=== PATIENT | male | born 1990 | race African-American/Black ===

== ENCOUNTER 2022-07-05 22:58 | Observation (INO) ==
[2022-07-05] MEDS ORDERED: MIDAZOLAM HCL 5 MG/ML VIAL ONE (23:07)
[2022-07-05] MEDS ORDERED: SODIUM CHLORIDE 0.9% 500 ML IV SCH (23:15)
[2022-07-05 23:37] LABS: Basophils # (auto) 0.03 K/uL (0-0.2); Basophils % (auto) 0.8 %; Eosinophils # (auto) 0.05 K/uL (0-0.50); Eosinophils % (auto) 1.3 %; Hematocrit (blood only) 38.4 % (40.1-51.0); Lymphocytes # (auto) 1.77 K/uL (1.2-3.4); Lymphocytes % (auto) 46.3 %; Mean Corpuscular Hemoglobin 30.4 pg (25.0-34.0); Mean Corpuscular Hgb Conc 33.9 g/dL (32.0-36.0); Mean Corpuscular Volume 89.9 fL (80.0-100.0); Mean Platelet Volume 9.6 fL (9.4-12.4); Monocytes # (auto) 0.39 K/uL (0.24-0.82); Monocytes % (auto) 10.2 %; Neutrophils # (auto) 1.58 K/uL (1.4-6.5); Neutrophils % (auto) 41.4 %; Platelet Count 238 K/uL (130-400); RDW Coefficient of Variation 12.5 % (11.5-14.5); RDW Standard Deviation 41.2 fL (36.4-46.3); Red Blood Count 4.27 M/uL (4.63-6.08); White Blood Count 3.82 K/ul (4.8-10.8)
[2022-07-06 00:02] LABS: Albumin Globulin Ratio 1.5 (0.9-2); Albumin Level 3.9 gm/dl (3.4-5.0); BUN Creatinine Ratio 18.9 (10-20); Bilirubin,Total 0.4 mg/dl (0.2-1.0); Calcium 8.4 mg/dl (8.5-10.1); Creatinine Clr Calc Pharmacy 135.7 ml/min; Est GFR (African American) 129.6 ml/min; Est GFR (Non-African American) 111.8 ml/min; Globulin 2.6 gm/dl (2.5-4.0); Total Protein 6.5 gm/dl (6.0-8.3)
[2022-07-06 01:28] LABS: Appearance Urine Clear (Clear); Bilirubin Urine Negative (Negative); Blood Urine Negative (Negative); Color Urine Yellow; Glucose Urine UA Negative (Negative); Ketones Urine Negative (Negative); Leukocyte Esterase Urine Negative (Negative); Nitrite Urine Negative (Negative); Protein Urine Negative (Negative); Specific Gravity Urine 1.009 (1.000-1.030); Urobilinogen Urine Negative (Negative)
[2022-07-06 02:32] LABS: Amphetamines+Metham, Urine Neg (Neg); Barbiturates, Urine Neg (Neg); Benzodiazepine, Urine Pos (Neg); Cocaine, Urine Neg (Neg); MDMA (Ecstacy), Urine Neg (Neg); Methadone, Urine Neg (Neg); Opiate, Urine Neg (Neg); Phencyclidine, Urine Neg (Neg)
[2022-07-06] MEDS ORDERED: LORazepam 2 MG/2 ML SYR IV STA (03:51)
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
[2022-07-06] MEDS ORDERED: ONDANSETRON INJ 2 MG/ML 2 ML VIAL IV PRN (06:09)
[2022-07-06] MEDS ORDERED: ACETAMINOPHEN 325 MG TAB PO PRN (06:09)
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
[2022-07-06 07:23] LABS: Basophils # (auto) 0.02 K/uL (0-0.2); Basophils % (auto) 0.4 %; Eosinophils # (auto) 0.09 K/uL (0-0.50); Eosinophils % (auto) 1.9 %; Hematocrit (blood only) 39.5 % (40.1-51.0); Hemoglobin 13.7 g/dl (14.0-18.0); Immature Granulocytes # (auto) 0.01 K/uL (0.00-0.02); Immature Granulocytes % (auto) 0.2 %; Lymphocytes # (auto) 2.11 K/uL (1.2-3.4); Lymphocytes % (auto) 44.2 %; Mean Corpuscular Hemoglobin 31.1 pg (25.0-34.0); Mean Corpuscular Hgb Conc 34.7 g/dL (32.0-36.0); Mean Corpuscular Volume 89.6 fL (80.0-100.0); Mean Platelet Volume 9.5 fL (9.4-12.4); Monocytes # (auto) 0.39 K/uL (0.24-0.82); Monocytes % (auto) 8.2 %; Neutrophils # (auto) 2.15 K/uL (1.4-6.5); Neutrophils % (auto) 45.1 %; Platelet Count 236 K/uL (130-400); RDW Coefficient of Variation 12.4 % (11.5-14.5); RDW Standard Deviation 40.7 fL (36.4-46.3); Red Blood Count 4.41 M/uL (4.63-6.08); White Blood Count 4.77 K/ul (4.8-10.8)
[2022-07-06 08:05] LABS: BUN Creatinine Ratio 16.2 (10-20); Calcium 8.7 mg/dl (8.5-10.1); Creatinine Clr Calc Pharmacy 165.1 ml/min; Est GFR (African American) 140.5 ml/min; Est GFR (Non-African American) 121.2 ml/min; Potassium 3.6 mmol/L (3.5-5.1)
[2022-07-06] MEDS ORDERED: LORazepam 1 MG in SYRINGE 0 ML IV STA (08:41)
[2022-07-06] MEDS ORDERED: LORazepam 1 MG in SYRINGE 0 ML IV PRN ×2 (08:44→09:32)
[2022-07-06] MEDS ORDERED: LORazepam 4 MG in SYRINGE 0 ML IV PRN (09:34)
[2022-07-06] MEDS ORDERED: PHENYTOIN 200 MG in SYRINGE 0 ML IV STA (09:54)
[2022-07-06] MEDS ORDERED: SODIUM CHLORIDE 0.9% 10ML FLUSH IV STA (09:54)
[2022-07-06 10:02] LABS: Basophils # (auto) 0.02 K/uL (0-0.2); Basophils % (auto) 0.4 %; Eosinophils % (auto) 2.2 %; Hematocrit (blood only) 41.8 % (40.1-51.0); Hemoglobin 14.1 g/dl (14.0-18.0); Mean Corpuscular Hemoglobin 30.6 pg (25.0-34.0); Mean Corpuscular Hgb Conc 33.7 g/dL (32.0-36.0); Mean Corpuscular Volume 90.7 fL (80.0-100.0); Monocytes # (auto) 0.41 K/uL (0.24-0.82); Monocytes % (auto) 9.2 %; Neutrophils # (auto) 2.24 K/uL (1.4-6.5); Neutrophils % (auto) 50.2 %; Platelet Count 243 K/uL (130-400); RDW Coefficient of Variation 12.8 % (11.5-14.5); RDW Standard Deviation 41.8 fL (36.4-46.3); Red Blood Count 4.61 M/uL (4.63-6.08); White Blood Count 4.47 K/ul (4.8-10.8)
[2022-07-06] MEDS ORDERED: SODIUM CHLORIDE IV STA (10:08)
[2022-07-06] MEDS ORDERED: FOSPHENYTOIN IV STA (10:08)
[2022-07-06 10:26] LABS: BUN Creatinine Ratio 12.5 (10-20); Creatinine Clr Calc Pharmacy 138.8 ml/min; Est GFR (African American) 130.8 ml/min; Est GFR (Non-African American) 112.9 ml/min; Potassium 3.7 mmol/L (3.5-5.1)
[2022-07-06] MEDS ORDERED: MGPE IV ONE (10:30)
[2022-07-06] MEDS ORDERED: SODIUM CHLORIDE 0.9% IV ONE (10:30)
[2022-07-06] MEDS ORDERED: FOSPHENYTOIN IV ONE (10:30)
[2022-07-06] MEDS: LORazepam 1 MG in SYRINGE 0 ML IV PRN ×4 (10:38→14:00)
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
[2022-07-06] MEDS ORDERED: levETIRAcetam 500 MG TAB PO ONE (12:00)
--- NOTE | 2022-07-06 14:43 | Electrocardiogram Report ---
Test Reason : Blood Pressure : / mmHG Vent. Rate : 066 BPM Atrial Rate : 066 BPM P-R Int : 240 ms QRS Dur : 078 ms QT Int : 408 ms P-R-T Axes : 065 061 032 degrees QTc Int : 427 ms Sinus rhythm with 1st degree A-V block Otherwise normal ECG When compared with ECG of 23-APR-2016 15:01, FL interval has increased Confirmed by Kb Ames ([id number]) on 07/06/2022 2:43:17 PM Referred By: Misha KEY Confirmed By:Kb Ames
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
--- NOTE | 2022-07-06 17:30 | Electroencephalogram ---
EEG Procedure Note Date of Service July 06, 2022 Start / End Times Start Time: 16:20 End Time: 16:30 Referring Physician Sergio Colón MD History Seizures Home Medication List Medication Instructions Recorded Confirmed Type mirtazapine 15 mg tablet 15 mg PO HS 07/06/22 07/06/22 History paroxetine HCl 10 mg tablet 10 mg PO DAILY 07/06/22 07/06/22 History Inpatient Medication List Lorazepam 1 mg/ Syringe 1 mls @ 2 mls/min IV Q5M PRN PRN Reason: Seizure Stop: 08/05/22 09:33 Last Admin: 07/06/22 14:00 Dose: 2 mls/min Documented By: Admin: 07/06/22 13:42 Dose: 2 mls/min Documented By: Admin: 07/06/22 11:22 Dose: 2 mls/min Documented By: Admin: 07/06/22 10:38 Dose: 2 mls/min Documented By: JUSTINO Discontinued Medications Sodium Chloride (Nss) 500 mls @ 999 mls/hr IV .Q31M ZURDO Stop: 07/05/22 23:45 Last Infusion: 07/06/22 01:35 Dose: 0 mls/hr Documented By: Admin: 07/06/22 00:17 Dose: 999 mls/hr Documented By: YAMILE Levetiracetam 2,000 mg/ Sodium (Chloride) 270 mls @ 999 mls/hr IV NOW STA Stop: 07/06/22 01:51 Last Infusion: 07/06/22 02:19 Dose: 0 mls/hr Documented By: Admin: 07/06/22 01:55 Dose: 999 mls/hr Documented By: YAMILE Lorazepam 1 mg/ Syringe 1 mls @ 2 mls/min IV NOW STA Stop: 07/06/22 08:42 Last Admin: 07/06/22 08:49 Dose: 2 mls/min Documented By: JUSTINO Lorazepam 1 mg/ Syringe 1 mls @ 2 mls/min IV Q2H PRN PRN Reason: Seizure Stop: 08/05/22 08:43 Last Admin: 07/06/22 09:15 Dose: 2 mls/min Documented By: JUSTINO Phenytoin 200 mg/ Syringe 4 mls @ 1 mls/min IV NOW STA Stop: 07/06/22 09:57 Last Admin: 07/06/22 10:10 Dose: Not Given Documented By: JUSTINO Fosphenytoin Sodium 2,000 mgpe (/ Sodium Chloride) 140 mls @ 280 mls/hr IV NOW ONE Stop: 07/06/22 10:59 Last Infusion: 07/06/22 11:25 Dose: 0 mls/hr Documented By: Admin: 07/06/22 10:52 Dose: 280 mls/hr Documented By: JUSTINO Levetiracetam (Levetiracetam 500 Mg Tab) 500 mg PO 1200 ONE Stop: 07/06/22 12:01 Last Admin: 07/06/22 12:16 Dose: 500 mg Documented By: JUSTINO Lorazepam (Lorazepam 2 Mg/2 Ml Syr) 1 mg IV NOW STA; Protocol Stop: 07/06/22 03:52 Last Admin: 07/06/22 03:56 Dose: 1 mg Documented By: YAMILE Midazolam HCl (Midazolam Hcl 5 Mg/Ml Vial) Confirm Administered Dose 10 mg .ROUTE .Egoscue-gripNote ONE Stop: 07/05/22 23:08 Last Increment: 07/05/22 23:40 Dose: 2.5 mg Documented By: MARK Increment: 07/05/22 23:13 Dose: 2.5 mg Documented By: MARK Description This is a 21 electrode EEG with a single channel dedicated to limited EKG. The electrodes were placed in accordance with the International 10-20 system. Video is recorded during this study. Interpretation During restful wakefulness, there is low amplitude, 10 to 11 Hz posterior activity, attenuates with eye opening bilaterally. Background activity shows good organization without generalized or focal slowing. Photic stimulations induce posterior driving responses bilaterally. Hyperventilation is not attempted. During sleep, vertex sharp waves and sleep spindles are recorded bilaterally and symmetrically. There are no electrographic seizures or epileptogenic discharges during this study. Impression: This is a normal EEG, recorded in wakefulness and sleep. There is no electrographic seizure or epileptogenic discharge. Clinical Correlation Normal routine interictal EEG does not rule out seizure disorder. Clinical correlation is suggested.
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
--- NOTE | 2022-07-06 20:32 | Communication Note ---
Date of Service: July 06, 2022 Patient had multiple episodes of seizure-like activity; 4 total, 3-5 min duration. Per nurse, appeared more consistent w/ pseudoseizures.
[2022-07-06] MEDS: levETIRAcetam 500 MG TAB PO SCH (21:28)
--- NOTE | 2022-07-07 02:38 | Billing Data ---
Date of Service July 07, 2022 Coding Level of Care Code INT OBSERVATION CARE 70M LVL 3
[2022-07-07 06:34] LABS: Hematocrit (blood only) 43.2 % (40.1-51.0); Hemoglobin 14.6 g/dl (14.0-18.0); Mean Corpuscular Hemoglobin 31.1 pg (25.0-34.0); Mean Corpuscular Hgb Conc 33.8 g/dL (32.0-36.0); Mean Corpuscular Volume 91.9 fL (80.0-100.0); Mean Platelet Volume 9.2 fL (9.4-12.4); Platelet Count 274 K/uL (130-400); RDW Coefficient of Variation 12.8 % (11.5-14.5); RDW Standard Deviation 42.7 fL (36.4-46.3); White Blood Count 4.77 K/ul (4.8-10.8)
[2022-07-07 06:53] LABS: BUN Creatinine Ratio 13.7 (10-20); Calcium 9.3 mg/dl (8.5-10.1); Creatinine Clr Calc Pharmacy 119.8 ml/min; Est GFR (African American) 111.4 ml/min; Est GFR (Non-African American) 96.1 ml/min; Magnesium 1.9 mg/dl (1.7-2.4); Potassium 3.5 mmol/L (3.5-5.1)
[2022-07-07] MEDS: levETIRAcetam 500 MG TAB PO SCH (09:48)
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
--- NOTE | 2022-07-07 13:47 | Electrocardiogram Report ---
Test Reason : Blood Pressure : / mmHG Vent. Rate : 101 BPM Atrial Rate : 101 BPM P-R Int : 190 ms QRS Dur : 086 ms QT Int : 358 ms P-R-T Axes : 052 058 019 degrees QTc Int : 464 ms Sinus tachycardia Left atrial enlargement Borderline ECG When compared with ECG of 06-JUL-2022 00:43, MD interval has decreased Vent. rate has increased BY 35 BPM T wave amplitude has decreased in Anterolateral leads Confirmed by Kb Ames ([id number]) on 07/07/2022 1:46:55 PM Referred By: Misha SCI Confirmed By:Kb Ames
[2022-07-07 14:51] LABS: 7-Aminoclonaz, Confirm NEGATIVE ng/mL (<25); Hydro-Alp Ur, GC/MS NEGATIVE ng/mL (<25); Hydroxyethylflurazepam, Conf NEGATIVE ng/mL (<50); Hydroxymidazolam Ur, GC/MS >2000 ng/mL (<50); Hydroxytriazolam NEGATIVE ng/mL (<50); Lorazepam, Ur GC/MS NEGATIVE ng/mL (<50); Nordiazepam, Confirm NEGATIVE ng/mL (<50); Oxazepam Ur, GC/MS NEGATIVE ng/mL (<50); Temazepam, Confirm NEGATIVE ng/mL (<50)
--- NOTE | 2022-07-07 15:50 | Billing Data ---
Date of Service July 07, 2022 Coding Level of Care Code 49704 OBS Care - Discharge
== END 2022-07-07 13:30 ==
LOC: 2N 22:58 → ED 22:58 → SUATTDRO 07-06 05:01 → 2N 07-06 05:43 → 2S 07-06 13:00